=== PATIENT | female | born 1980 | race Caucasian/White ===

== ENCOUNTER 2023-09-28 16:35 | Inpatient (IN) | payer OTHER ==
[~2023-09-28] VITALS: Ht 162.6 cm; Wt 93.9 kg
[2023-09-28 17:42] LABS: BASOPHILS # (AUTO) 0.1 (0.0-0.1); BASOPHILS % 0.3 % (0.0-1.0); EOSINOPHILS # (AUTO) 0.1 (0.0-0.4); EOSINOPHILS % 0.8 % (0.0-6.0); HEMATOCRIT 31.2 % (34.2-44.1); HEMOGLOBIN 9.8 g/dL (12.0-16.0); LYMPHOCYTES # (AUTO) 1.7 (1.0-3.2); MEAN CORPUSCULAR HEMOGLOBIN 28.2 pg (28-32); MEAN CORPUSCULAR HGB CONC 31.4 g/dL (31-35); MEAN CORPUSCULAR VOLUME 89.7 fL (81-99); MONOCYTES # (AUTO) 0.8 (0.2-0.8); MONOCYTES % 4.3 % (4.4-11.3); NEUTROPHILS # (AUTO) 15.6 (2.1-6.9); NEUTROPHILS % 84.2 % (38.7-80.0); PLATELET COUNT 376 x10e3/uL (140-360); RED BLOOD COUNT 3.48 x10e6/uL (3.6-5.1); RED CELL DISTRIBUTION WIDTH 13.8 % (11.7-14.4)
[2023-09-28 18:04] LABS: ALBUMIN/GLOBULIN RATIO 0.6 (0.8-2.0); ANION GAP 17.4 mmol/L (8-16); BILIRUBIN,TOTAL 0.4 mg/dL (0.2-1.2); CALCIUM 8.8 mg/dL (8.4-10.2); CREATININE, SERUM 0.71 mg/dL (0.57-1.11); MAGNESIUM 2.3 MG/DL (1.3-2.1); TOTAL PROTEIN 8.2 g/dL (6.5-8.1)
[2023-09-28 18:05] LABS: POTASSIUM 3.4 mmol/L (3.5-5.1)
[2023-09-28] MEDS: SODIUM CHLORIDE 0.9% 1000ML 1,000 ML IV STA ×2 (18:24→18:25)
[2023-09-28] MEDS: Morphine 4mg INJECTION 4 MG/ML INJ IV ONE (18:25)
[2023-09-28] MEDS ORDERED: METRONIDAZOLE 500MG/NS 100ML 100 ML IV SCH (18:30)
[2023-09-28] MEDS ORDERED: HYDRALAZINE HCL 20 MG/ML VIAL IV PRN (19:30)
[2023-09-28] MEDS ORDERED: FAMOTIDINE 20 MG TAB PO PRN (19:30)
[2023-09-28] MEDS ORDERED: KETOROLAC TROMETHAMINE 30 MG/ML VIAL IM PRN (19:30)
[2023-09-28] MEDS ORDERED: IOPAMIDOL 370 MG/ML 100 ML INFUS..BTL INJ ONE (20:04)
[2023-09-28 20:07] LABS: HYPOCHROMASIA SLIGHT; LYMPHOCYTES % (MANUAL) 12 % (19-48); MONOCYTES % (MANUAL) 3 % (3.4-9.0); NEUTROPHILS % (MANUAL) 85 % (40-74); PLATELET ESTIMATE ADEQUATE; PLATELET MORPHOLOGY COMMENT FEW LARGE; RBC MORPHOLOGY COMMENT NORMAL
[2023-09-28] MEDS: Vancomycin IV 1 GM in SODIUM CHLORIDE 0.9% 250ML 250 ML IV ONE (21:02)
[2023-09-28] MEDS: DOCUSATE SODIUM 100 MG CAP PO ONE (21:02)
[2023-09-28] MEDS: DEXTROSE 5%/0.45% SOD CHL 1,000 ML IV ONE (21:02)
[2023-09-28] MEDS: SODIUM CHLORIDE 0.9% IV ONE (21:04)
[2023-09-28 21:15] LABS: BILIRUBIN,URINE NEGATIVE (NEGATIVE); CLARITY,URINE SL CLOUDY (CLEAR); COLOR,URINE YELLOW (YELLOW); GLUCOSE, URINE NEGATIVE (NEGATIVE); KETONES,URINE 2+ (NEGATIVE); LEUKOCYTE ESTERASE ,URINE NEGATIVE (NEGATIVE); NITRITE,URINE NEGATIVE (NEGATIVE); PH,URINE 6 (5 - 7); PROTEIN,URINE DIPSTICK 1+ (NEGATIVE); URINE UROBILINOGEN 0.2 mg/dL (0.2 - 1)
[2023-09-28 21:27] LABS: BACTERIA,URINE RARE /HPF; EPITHELIAL CELLS,URINE MODERATE /LPF
[2023-09-28] MEDS: ONDANSETRON HCL INJ 2MG/ML 2ML 2 MG/ML VIAL IV PRN (21:59)
[2023-09-28] MEDS: Morphine 4mg INJECTION 4 MG/ML INJ IV PRN (22:00)
[2023-09-28 22:09] VITALS: PULSE 105; RESP 20; TEMP 103.1
[2023-09-28] MEDS: ACETAMINOPHEN 325 MG TAB PO PRN (22:14)
[2023-09-28] MEDS ORDERED: ACID-PEP20 MG (23:02)
[2023-09-28] MEDS ORDERED: VENLAFAXINE HCL75 M1 PO (23:02)
[2023-09-28 23:03] VITALS: BP 115/53; PULSE 113; RESP 18; TEMP 102.9; O2SAT 99
[2023-09-29] VITALS (8 sets, daily range): BP systolic 103–151; BP diastolic 53–81; PULSE 81–116; RESP 16–20; TEMP 97.7–102.9; O2SAT 99–100
[2023-09-29 06:11] LABS: BASOPHILS # (AUTO) 0.1 (0.0-0.1); BASOPHILS % 0.3 % (0.0-1.0); EOSINOPHILS # (AUTO) 0.2 (0.0-0.4); EOSINOPHILS % 1.2 % (0.0-6.0); HEMATOCRIT 27.8 % (34.2-44.1); HEMOGLOBIN 8.5 g/dL (12.0-16.0); LYMPHOCYTES # (AUTO) 1.6 (1.0-3.2); LYMPHOCYTES % 9.1 % (18.0-39.1); MEAN CORPUSCULAR HEMOGLOBIN 28.2 pg (28-32); MEAN CORPUSCULAR HGB CONC 30.6 g/dL (31-35); MEAN CORPUSCULAR VOLUME 92.4 fL (81-99); MONOCYTES % 5.6 % (4.4-11.3); NEUTROPHILS # (AUTO) 14.3 (2.1-6.9); NEUTROPHILS % 82.9 % (38.7-80.0); PLATELET COUNT 315 x10e3/uL (140-360); RED BLOOD COUNT 3.01 x10e6/uL (3.6-5.1); RED CELL DISTRIBUTION WIDTH 14.2 % (11.7-14.4); WHITE BLOOD COUNT 17.28 x10e3/uL (4.8-10.8)
[2023-09-29 06:50] LABS: ALANINE AMINOTRANSFERASE 20 IU/L (0-55); ALBUMIN 2.4 g/dL (3.5-5.0); ALBUMIN/GLOBULIN RATIO 0.6 (0.8-2.0); ALKALINE PHOSPHATASE 160 IU/L (40-150); ANION GAP 15.3 mmol/L (8-16); BILIRUBIN,TOTAL 0.4 mg/dL (0.2-1.2); BLOOD UREA NITROGEN < 5 mg/dL (7-26); CALCIUM 7.8 mg/dL (8.4-10.2); CARBON DIOXIDE 19 mmol/L (22-29); CHLORIDE 103 mmol/L (98-107); CREATININE, SERUM 0.68 mg/dL (0.57-1.11); EST GLOMERULAR FILTRATION RATE 111 ML/MIN (>=60); GLUCOSE 115 mg/dL (74-118); SODIUM 134 mmol/L (136-145); TOTAL PROTEIN 6.7 g/dL (6.5-8.1); TRANSFERRIN 192 mg/dL (180-382)
[2023-09-29 06:55] LABS: FERRITIN 180.07 ng/mL (4.63-204.00)
[2023-09-29 07:02] LABS: BUN/CREATININE RATIO 7 (6-25); POTASSIUM 3.3 mmol/L (3.5-5.1)
[2023-09-29 07:11] LABS: FOLATE 11.7 ng/mL (7.0-15.4)
[2023-09-29] MEDS: SODIUM CHLORIDE 0.9% 1000ML 1,000 ML IV SCH (09:25)
[2023-09-29] MEDS: Vancomycin IV 1 GM in SODIUM CHLORIDE 0.9% 250ML 250 ML IV SCH (09:26)
[2023-09-29] MEDS: HYDROMORPHONE 1MG/1ML INJ IV PRN (10:49)
[2023-09-29] MEDS ORDERED: MIDAZOLAM HCL 2 MG/2 ML VIAL ONE (11:43)
[2023-09-29] MEDS ORDERED: FENTANYL CITRATE/PF 100MCG/2 ML INJ ONE (11:43)
[2023-09-29] MEDS ORDERED: BUPIVACAINE 0.25% 30ML SDV ONE (12:12)
[2023-09-29] MEDS ORDERED: LIDOCAINE 1% W/EPINEPHRINE 20 ML VIAL ONE (12:12)
[2023-09-29] MEDS ORDERED: LIDOCAINE HCL 2% LOCAL INJ 5 ML SDV VIAL INJ ONE (13:09)
[2023-09-29] MEDS ORDERED: PROPOFOL IV EMULSION 10 MG/ML 20 ML VIAL ONE (13:09)
[2023-09-29] MEDS ORDERED: SEVOFLURANE INHAL SOLN 250 ML PEN BTL ONE (13:09)
[2023-09-29] MEDS ORDERED: ACETAMINOPHEN 1000 MG/100 ML IV ONE (13:09)
[2023-09-29] MEDS ORDERED: DEXMEDETOMIDINE HCL 200 MCG/2 ML VIAL ONE (13:09)
[2023-09-29] MEDS ORDERED: ONDANSETRON HCL INJ 2MG/ML 2ML 2 MG/ML VIAL ONE (13:09)
[2023-09-29] MEDS ORDERED: DEXAMETHASONE SOD PHOS INJ 4 MG/ML SDV ONE (13:09)
[2023-09-29] MEDS ORDERED: FAMOTIDINE 20 MG/2 ML VIAL IV ONE (13:09)
[2023-09-29] MEDS ORDERED: ONDANSETRON HCL INJ 2MG/ML 2ML 2 MG/ML VIAL IV PRN (13:45)
[2023-09-29] MEDS: METRONIDAZOLE 500MG/NS 100ML 100 ML IV SCH (17:21)
[2023-09-29] MEDS: MELATONIN 5 MG TABLET PO PRN (22:26)
[2023-09-30] VITALS (8 sets, daily range): BP systolic 103–121; BP diastolic 54–81; PULSE 76–88; RESP 17–22; TEMP 97.5–98; O2SAT 96–100
[2023-09-30 05:43] LABS: BASOPHILS # (AUTO) 0.1 (0.0-0.1); BASOPHILS % 0.4 % (0.0-1.0); HEMATOCRIT 26.9 % (34.2-44.1); HEMOGLOBIN 8.3 g/dL (12.0-16.0); LYMPHOCYTES # (AUTO) 1.2 (1.0-3.2); LYMPHOCYTES % 5.4 % (18.0-39.1); MEAN CORPUSCULAR HEMOGLOBIN 28.1 pg (28-32); MEAN CORPUSCULAR HGB CONC 30.9 g/dL (31-35); MEAN CORPUSCULAR VOLUME 91.2 fL (81-99); MONOCYTES # (AUTO) 0.6 (0.2-0.8); MONOCYTES % 2.9 % (4.4-11.3); NEUTROPHILS # (AUTO) 19.6 (2.1-6.9); NEUTROPHILS % 90.2 % (38.7-80.0); PLATELET COUNT 330 x10e3/uL (140-360); RED BLOOD COUNT 2.95 x10e6/uL (3.6-5.1); WHITE BLOOD COUNT 21.69 x10e3/uL (4.8-10.8)
[2023-09-30 06:45] LABS: ALBUMIN 2.3 g/dL (3.5-5.0); ALBUMIN/GLOBULIN RATIO 0.6 (0.8-2.0); ANION GAP 14.7 mmol/L (8-16); BILIRUBIN,TOTAL 0.2 mg/dL (0.2-1.2); CALCIUM 8.2 mg/dL (8.4-10.2); CREATININE, SERUM 0.61 mg/dL (0.57-1.11); POTASSIUM 3.7 mmol/L (3.5-5.1); TOTAL PROTEIN 6.4 g/dL (6.5-8.1)
[2023-09-30 08:39] LABS: LYMPHOCYTES % (MANUAL) 5 % (19-48); MONOCYTES % (MANUAL) 1 % (3.4-9.0); NEUTROPHILS % (MANUAL) 94 % (40-74); PLATELET ESTIMATE ADEQUATE; PLATELET MORPHOLOGY COMMENT NORMAL; RBC MORPHOLOGY COMMENT NORMAL
[2023-09-30] MEDS: HYDROCODONE/APAP 7.5MG-325MG 1 EA TAB PO PRN (21:55)
[2023-10-01] VITALS: BP 139/72; PULSE 91; RESP 18; TEMP 98; O2SAT 100
[2023-10-01 04:00] VITALS: BP 122/76; PULSE 85; RESP 18; TEMP 97.4; O2SAT 93
[2023-10-01 06:53] LABS: BASOPHILS % 0.2 % (0.0-1.0); EOSINOPHILS # (AUTO) 0.2 (0.0-0.4); EOSINOPHILS % 1.5 % (0.0-6.0); HEMATOCRIT 23.9 % (34.2-44.1); LYMPHOCYTES # (AUTO) 3.1 (1.0-3.2); LYMPHOCYTES % 21.2 % (18.0-39.1); MEAN CORPUSCULAR HEMOGLOBIN 27.9 pg (28-32); MEAN CORPUSCULAR HGB CONC 30.5 g/dL (31-35); MEAN CORPUSCULAR VOLUME 91.2 fL (81-99); MONOCYTES # (AUTO) 0.6 (0.2-0.8); MONOCYTES % 4.1 % (4.4-11.3); NEUTROPHILS # (AUTO) 10.2 (2.1-6.9); NEUTROPHILS % 70.6 % (38.7-80.0); PLATELET COUNT 376 x10e3/uL (140-360); RED BLOOD COUNT 2.62 x10e6/uL (3.6-5.1); RED CELL DISTRIBUTION WIDTH 14.3 % (11.7-14.4); WHITE BLOOD COUNT 14.45 x10e3/uL (4.8-10.8)
[2023-10-01 07:03] LABS: HEMOGLOBIN 7.3 g/dL (12.0-16.0)
[2023-10-01 07:39] LABS: ALBUMIN/GLOBULIN RATIO 0.6 (0.8-2.0); ANION GAP 12.4 mmol/L (8-16); BILIRUBIN,TOTAL 0.1 mg/dL (0.2-1.2); CALCIUM 7.7 mg/dL (8.4-10.2); CREATININE, SERUM 0.62 mg/dL (0.57-1.11); TOTAL PROTEIN 5.1 g/dL (6.5-8.1)
[2023-10-01 07:41] LABS: POTASSIUM 3.4 mmol/L (3.5-5.1)
[2023-10-01 07:54] VITALS: BP 93/71; PULSE 86; RESP 18; TEMP 97.8; O2SAT 98
[2023-10-01] MEDS: VANCOMYCIN 1.5 GM/300 ML 300 ML IV SCH (08:47)
[2023-10-01] MEDS: SODIUM CHLORIDE 0.9% 250ML 250 ML IV ONE (09:37)
[2023-10-01 11:35] VITALS: BP 116/62; PULSE 86; RESP 18; TEMP 98; O2SAT 99
[2023-10-01] MEDS: SODIUM CHLORIDE 0.9% 250ML 250 ML ONE (14:45)
[2023-10-01] MEDS ORDERED: CIPRO500 MG PO (16:19)
[2023-10-01] MEDS ORDERED: HYDROCODON-ACE1 EA12 PO (16:20)
[2023-10-01] MEDS ORDERED: METRONIDAZOLE500 MG PO (16:20)
[2023-10-01] MEDS ORDERED: METRONIDAZOLE 500 MG TAB PO SCH (22:00)
== END 2023-10-01 18:22 | disposition home or self-care (01) | DRG 854 ==
LOC: ER 16:47 → ERHOLD 18:39 → MED/SURG 23:08
PROVIDERS: ADMIT Family Medicine Adult Medicine; ATTEND Family Medicine Adult Medicine
PROC: 3E03329 Introduction of Other Anti-infective into Peripheral Vein, Percutaneous Approach (ICD-10-PCS; 2023-09-28)
PROC: 0JDB0ZZ Extraction of Perineum Subcutaneous Tissue and Fascia, Open Approach (ICD-10-PCS; 2023-09-29)
PROC: 0J9B0ZZ Drainage of Perineum Subcutaneous Tissue and Fascia, Open Approach (ICD-10-PCS; 2023-09-29)
PROC: 30233N1 Transfusion of Nonautologous Red Blood Cells into Peripheral Vein, Percutaneous Approach (ICD-10-PCS; principal; 2023-10-01)
DX: A41.9 Sepsis, unspecified organism (principal); D62 Acute posthemorrhagic anemia; K61.1 Rectal abscess; L03.317 Cellulitis of buttock; E87.1 Hypo-osmolality and hyponatremia; E78.5 Hyperlipidemia, unspecified; R73.03 Prediabetes; E55.9 Vitamin D deficiency, unspecified; N95.1 Menopausal and female climacteric states; R23.2 Flushing; K76.0 Fatty (change of) liver, not elsewhere classified; R39.198 Other difficulties with micturition; R00.0 Tachycardia, unspecified; K59.09 Other constipation; N20.0 Calculus of kidney; Z11.52 Encounter for screening for COVID-19; Z79.899 Other long term (current) drug therapy
CPT/HCPCS: 36415; 71045; 74177; 80053; 80202; 81001; 82607; 82728; 82746; 83605; 83690; 83735; 84466; 84702; 85025; 86850; 86900; 86920; 87040; 87071; 87075; 87086; 87186; 87205; 93005; 99284; J1100; J1170; J2001; J2250; J2270; J2405; J2543; J7030; J7050; P9016; Q9967; U0002